=== PATIENT | female | born 1970 | race Caucasian/White ===

== ENCOUNTER 2018-03-24 11:38 | Day surgery (SDC) | payer BC ==
[2018-03-24] MEDS ORDERED: ROPIVACAINE HCL 150 MG/30 ML INJ ONE (12:00)
[2018-03-24] MEDS ORDERED: DEXAMETHASONE 4 MG/ML VIAL ONE (12:00)
[2018-03-24] MEDS ORDERED: BUPIVACAINE 0.5% 30 ML SDV ONE (12:00)
[2018-03-24] MEDS ORDERED: BUPIVACAINE 0.25% 30 ML SDV ONE (12:00)
[2018-03-24] MEDS ORDERED: BACITRACIN 50,000 UNITS/10 ML SYR IRR ONE (12:01)
--- NOTE | 2018-03-24 12:26 | PDHPUP ---
History & Physical Update H&P update statement: This history and physical update is based on an assessment of the patient which was completed after admission or registration (within 24 hours), but prior to the surgery/procedure. no change H&P update: H&P reviewed & patient examined (no changes), no change in patient' s condition since H&P completed H&P changes: no changes
[2018-03-24] MEDS ORDERED: CEFAZOLIN 1 GM/DEXTROSE/50 ML BAG IV ONE (12:35)
[2018-03-24] MEDS ORDERED: LIDOCAINE 1% 300 MG/30 ML SDV ONE (12:43)
--- NOTE | 2018-03-24 14:05 | POSTOPPROG ---
Post Op Note Date of Operation: 03/24/18 Surgeon: Annelise Ferris Business Manager College Or University: none Anesthesiologist: none . Anesthesia: Local (Specify) (straight local) Pre-op Diagnosis: hammertoe/old fracture 5th toe left foot Post-op Diagnosis: same Indication: pain x 12 months Procedure: arthroplasty procedure 5th toe Findings: enlarged head proximal phalanx, DJD changes Inf/Abcess present in the surg proc area at time of surgery?: No Depth: Deep Incisional (Fascial) EBL: Minimal Complications: none
[2018-03-24] MEDS ORDERED: KETOROLAC 30 MG/1 ML SDV IVP ONE (14:07)
[2018-03-24 14:12] VITALS: BP 112/84
[2018-03-24] MEDS ORDERED: KETOROLAC 30 MG/1 ML SDV ONE (14:17)
--- NOTE | 2018-03-24 15:27 | GOP ---
[f rep st] OPERATIVE REPORT DATE OF OPERATION: 03/24/2018 SURGEON: Annelise Ferris DPM ANESTHESIA: No anesthesia. ANESTHESIOLOGIST: Nba billy. PREOPERATIVE DIAGNOSIS: Hammer toe, 5th digit/old fracture, left foot. POSTOPERATIVE DIAGNOSIS: Hammer toe, 5th digit/old fracture, left foot. PROCEDURE PERFORMED: Arthroplasty procedure, 5th digit, left foot. FINDINGS: INDICATIONS: Trauma to the 5th toe left foot 12 months ago, as a result foot pain since then, interm ittent episodes. However, pain is limiting her activities and she is an avid hiker. At this time el ects to proceed with surgery. Preoperative x-rays demonstrate loss of joint space at the proximal in terphalangeal joint, and congenital fused distal interphalangeal joint, making for a very rigid digit . Contracture noted as well. At this time, patient elects to proceed with surgery. DESCRIPTION OF PROCEDURE: The patient was brought into the operating room, placed on the operating t able in the supine position. There was no intravenous sedation. A peripheral digital nerve block wa s obtained utilizing 3 cc of 1% lidocaine plain and 2.5 cc of 0.5% ropivacaine. The lower extremity was prepped and draped in the usual sterile manner. After the limb was elevated, exsanguinated with an Esmarch bandage, then the ankle tourniquet was inflated to 230 mmHg, and the procedure was begun. Attention was directed toward the dorsal aspect of the 5th digit where a linear incision was created. Incision carefully deepened with care of neurovascular structures and to clamp and cauterize bleede rs which were minimal. Transverse tenotomy capsulotomy performed at the proximal interphalangeal deven nt. The head of the proximal phalanx was identified and noted to be degenerative with significant hy pertrophy along its medial aspect and synovitic tissue. Utilizing a sagittal saw, the head of the pr oximal phalanx was resected. Remaining bone smooth. No spicules. The wound was copiously irrigated with bacitracin irrigation solution. The capsule and extensor tendon were reapproximated with 4-0 V icryl and then subcutaneous closed with 4-0 Monocryl. Ankle tourniquet released and a normal hyperem ic response noted to all digits. The skin was then closed with 4-0 Prolene in a horizontal mattress and simple interrupted suture manner. Dressings included Xeroform, 4 x 4's, fluffs, Bryanna, reinforce d with tape, and an Azeem bandage. Patient tolerated the procedure and anesthesia well and left the op erating room with vital signs stable and vascular status intact to all digits. There were no intraop erative complications. No specimens sent to Pathology. In postoperative recovery, she was doing wel l. Her friend will be providing transportation home. She is to follow up with us in the office in 5 days for wound check. Postoperative shoe dispensed. Cryocuff as well. She was given a dose of Tor adol prior to leaving the hospital. She prefers to manage her pain with anti-inflammatories and pref ers not to take any pain medications and/or Tylenol. However, I have advised if she has pain, to toby e Tylenol in addition to the ibuprofen 600 mg t.i.d. She has got a dose of Toradol today, so not to start the ibuprofen until tomorrow. Prognosis good. /[id number]/MODL
== END 2018-03-24 14:39 | disposition home or self-care (01) ==
LOC: FSGY 11:38
PROVIDERS: ATTEND Podiatrist
PROC: 0QBR0ZZ Excision of Left Toe Phalanx, Open Approach (ICD-10-PCS; principal; 2018-03-24 12:30)
DX: M20.42 Other hammer toe(s) (acquired), left foot (principal); Q70.22 Fused toes, left foot; E03.9 Hypothyroidism, unspecified; F32.9 Major depressive disorder, single episode, unspecified; L40.9 Psoriasis, unspecified
CPT/HCPCS: J0690; J1100; J1885; J2795